=== PATIENT | female | born 1980 | race Caucasian/White ===

== ENCOUNTER 2024-09-06 17:56 | Emergency (ER) | payer MEDICAID ==
[~2024-09-06] VITALS: Ht 175.3 cm; Wt 73.9 kg
[2024-09-06] MEDS: PROCHLORPERAZINE EDISYLATE 10 MG/2 ML VIAL IM/IV ONE (18:30)
[2024-09-06] MEDS: IV NS 0.9% 1,000 ML BAG IV ONE (18:30)
[2024-09-06] MEDS: KETOROLAC TROMETHAMINE INJ 30 MG/ML VIAL IV ONE (18:30)
[2024-09-06] MEDS ORDERED: PROCHLORPERAZINE EDISYLATE 10 MG/2 ML VIAL ONE (18:46)
[2024-09-06] MEDS ORDERED: KETOROLAC TROMETHAMINE INJ 30 MG/ML VIAL ONE (18:46)
[2024-09-06 22:00] VITALS: BP 119/80; TEMP 98.3; O2SAT 99
== END 2024-09-06 22:01 | disposition home or self-care (01) ==
LOC: ER 18:13
DX: G43.909 Migraine, unspecified, not intractable, without status migrainosus (principal); F41.9 Anxiety disorder, unspecified
CPT/HCPCS: 99284; 96374; 96361; 96375; 96372; J1885; J0780; J1200; J7030